=== PATIENT | female | born 1990 | race Hispanic/Latino ===

== ENCOUNTER 2017-07-29 20:12 | Emergency (ER) | payer SELFPAY ==
[2017-07-29 21:39] LABS: APPEARANCE,URINE Clear (CLEAR); BILIRUBIN,URINE Negative (NEGATIVE); COLOR,URINE Yellow (YELLOW); GLUCOSE, URINE (UA) Negative (NEGATIVE); KETONES,URINE 15 mg/dL (NEGATIVE); LEUKOCYTE ESTERASE ,URINE Trace (NEGATIVE); NITRATE,URINE Negative (NEGATIVE); OCCULT BLOOD,URINE Negative (NEGATIVE); PH,URINE 5.5 (5.0-8.0); PROTEIN,URINE Negative (NEGATIVE); UROBILINOGEN,URINE 0.2 mg/dL (0.2-1.0)
[2017-07-29 21:42] LABS: HCG,QUAL RESULT NEGATIVE (NEGATIVE)
[2017-07-29 22:09] LABS: BASOPHILS % (AUTO) 0.5 % (0.0-5.0); EOSINOPHILS % (AUTO) 0.4 % (0.0-8.0); HEMATOCRIT 40.6 % (36-48); LYMPHOCYTES % (AUTO) 12.8 % (21.0-51.0); MEAN CORPUSCULAR HEMOGLOBIN 29.8 pg (27.0-33.0); MEAN CORPUSCULAR HGB CONC 34.6 g/dL (32.0-36.0); MEAN CORPUSCULAR VOLUME 86.1 fL (79-99); MONOCYTES % (AUTO) 3.4 % (3.0-13.0); NEUTROPHILS % (AUTO) 82.9 % (40.0-77.0); PLATELET COUNT (AUTO) 291 K/uL (130-400); RED BLOOD CELL COUNT(AUTO) 4.71 MIL/uL (4.00-5.50); RED CELL DISTRIBUTION WIDTH 13.8 % (11.0-15.5); WHITE BLOOD COUNT (AUTO) 10.3 K/uL (4.8-10.8)
[2017-07-29 22:23] LABS: CREATININE 0.8 mg/dL (0.5-1.5); POTASSIUM 3.9 mmol/L (3.5-5.1)
[2017-07-29 22:23] LABS: RBC,URINE 0-1 /HPF (0-1)
[2017-07-29 22:24] LABS: BACTERIA,URINE Few /HPF (None Seen); SQUAMOUS EPITHELIAL CELL,UR Few /LPF (0-2)
[2017-07-29 22:28] LABS: ALBUMIN 3.6 g/dL (3.5-5.0); BILIRUBIN,TOTAL 0.3 mg/dL (0.2-1.0); TOTAL PROTEIN, SERUM 7.8 g/dL (6.0-8.3)
[2017-07-29] MEDS ORDERED: LIDOCAINE HCL 2% VISCOUS 15 ML UDCUP ONE (22:43)
[2017-07-29] MEDS ORDERED: MAG HYDROX/AL HYDROX/SIMETH ES 30 ML SUSP UDCUP ONE (22:43)
== END 2017-07-29 23:37 | disposition home or self-care (01) ==
LOC: EDH 20:12
DX: N30.00 Acute cystitis without hematuria (principal); R10.13 Epigastric pain; R10.12 Left upper quadrant pain; F41.9 Anxiety disorder, unspecified
CPT/HCPCS: 36415; 80053; 81001; 81025; 83690; 85025; 86677

== ENCOUNTER 2021-07-25 18:20 | Inpatient (IN) | payer OTHER ==
[~2021-07-25] VITALS: Ht 154.9 cm; Wt 79.8 kg
[2021-07-25 19:30] VITALS: BP 120/69
[2021-07-25] MEDS ORDERED: LACTATED RINGERS 1000ML 1,000 ML IV PRN (19:30)
[2021-07-25] MEDS ORDERED: LACTATED RINGERS 500 ML 500 ML IV PRN (19:30)
[2021-07-25] MEDS ORDERED: EPHEDRINE SULFATE 50 MG/ML AMPULE IVP PRN (19:30)
[2021-07-25] MEDS ORDERED: PROMETHAZINE HCL 25 MG/ML 1ML AMPULE IM PRN (19:30)
[2021-07-25] MEDS ORDERED: MEPERIDINE-PF 50 MG/ML SYG IVP PRN (19:30)
[2021-07-25] MEDS ORDERED: NALOXONE HCL 0.4 MG/1 ML ML IV PRN (19:30)
[2021-07-25] MEDS: OXYTOCIN-LR 20 UNITS/1000 ML 1,000 ML IV SCH (19:30)
[2021-07-25] MEDS ORDERED: ROPIVACAINE 0.2% 100ML VIAL 100 ML EP SCH (19:30)
[2021-07-25 19:47] LABS: MEAN CORPUSCULAR HEMOGLOBIN 32.1 pg (27.0-33.0); MEAN CORPUSCULAR VOLUME 91.6 fL (79-99); RED BLOOD CELL COUNT(AUTO) 3.93 MIL/uL (4.00-5.50); RED CELL DISTRIBUTION WIDTH 12.8 % (11.0-15.5)
[2021-07-25 19:51] LABS: APPEARANCE,URINE Clear (CLEAR); BILIRUBIN,URINE Negative (NEGATIVE); COLOR,URINE Yellow (YELLOW); GLUCOSE, URINE (UA) Negative (NEGATIVE); KETONES,URINE Negative (NEGATIVE); LEUKOCYTE ESTERASE ,URINE Trace (NEGATIVE); NITRATE,URINE Negative (NEGATIVE); OCCULT BLOOD,URINE Negative (NEGATIVE); PH,URINE 5.5 (5.0-8.0); PROTEIN,URINE Negative (NEGATIVE); UROBILINOGEN,URINE 0.2 mg/dL (0.2-1.0)
[2021-07-25] MEDS ORDERED: DINOPROSTONE 10 MG VAGINAL SUPP VG SCH (20:00)
[2021-07-25 20:09] LABS: RBC,URINE 0-1 /HPF (0-1)
[2021-07-25 20:10] LABS: BACTERIA,URINE Few /HPF (None Seen); TRANSITIONAL EPI CELLS,URINE Rare /HPF (None Seen)
[2021-07-25 20:11] LABS: MUCUS,URINE Rare LPF (None Seen); SQUAMOUS EPITHELIAL CELL,UR Moderate /HPF (0-2)
[2021-07-26] MEDS: OXYTOCIN-LR 20 UNITS/1000 ML 1,000 ML IV SCH (08:32)
[2021-07-26] MEDS: MISOPROSTOL 25 MCG TABLET VG PRN ×2 (20:08→23:36)
[2021-07-27] MEDS: MISOPROSTOL 25 MCG TABLET VG PRN (02:14)
[2021-07-27] MEDS: OXYTOCIN-LR 20 UNITS/1000 ML 1,000 ML IV SCH ×2 (06:07→15:18)
[2021-07-27] MEDS ORDERED: FENTANYL CITRATE PF 50 MCG/1 ML 2ML VIAL ONE (08:20)
[2021-07-27] MEDS ORDERED: LIDOCAINE HCL 1% 20 ML VIAL ONE (12:26)
[2021-07-27] MEDS ORDERED: METHYLERGONOVINE MALEATE 0.2 MG/1 ML ML ONE (12:27)
[2021-07-27] MEDS ORDERED: WITCH HAZEL 1 PAD TP PRN (15:30)
[2021-07-27] MEDS ORDERED: LANOLIN 30GM OINTMENT TP PRN (15:30)
[2021-07-27] MEDS ORDERED: ACETAMINOPHEN WITH CODEINE 1 TAB TAB PO PRN (15:30)
[2021-07-27] MEDS ORDERED: BENZOCAINE/LANOLIN/ALOE VERA 60 ML AEROSOL TP PRN (15:30)
[2021-07-27] MEDS ORDERED: MEASLES/MUMPS/RUBELLA VACCINE, LIVE 0.5 ML/VIAL SQ PRN (15:30)
[2021-07-27] MEDS ORDERED: ACETAMINOPHEN 325 MG TAB PO PRN (15:30)
[2021-07-27] MEDS ORDERED: DIPH,PERTUSS(ACELL),TET VAC/PF 0.5 ML VIAL IM PRN (15:30)
[2021-07-27] MEDS ORDERED: OXYTOCIN-LR 20 UNITS/1000 ML 1,000 ML IV SCH (15:30)
[2021-07-27 16:49] VITALS: BP 130/69
[2021-07-27 19:14] VITALS: BP 118/66
[2021-07-27] MEDS ORDERED: PNV1TABL17 PO (19:37)
[2021-07-27] MEDS ORDERED: LORA10TA7 PO (19:37)
[2021-07-27] MEDS ORDERED: SERT25TA PO (19:37)
[2021-07-27] MEDS: IBUPROFEN 600 MG TABLET PO PRN (20:06)
[2021-07-27] MEDS: DOCUSATE SODIUM 100 MG CAP PO SCH (21:10)
[2021-07-27 23:09] VITALS: BP 96/48
[2021-07-28 03:23] VITALS: BP 91/56
[2021-07-28] MEDS: IBUPROFEN 600 MG TABLET PO PRN ×2 (05:27→10:56)
[2021-07-28 06:58] LABS: HEMATOCRIT 33.6 % (36-48); MEAN CORPUSCULAR HGB CONC 33.9 g/dL (32.0-36.0); MEAN CORPUSCULAR VOLUME 94.4 fL (79-99); RED BLOOD CELL COUNT(AUTO) 3.56 MIL/uL (4.00-5.50); WHITE BLOOD COUNT (AUTO) 10.3 K/uL (4.8-10.8)
[2021-07-28 07:14] VITALS: BP 95/66
[2021-07-28] MEDS: DOCUSATE SODIUM 100 MG CAP PO SCH (09:12)
[2021-07-28] MEDS ORDERED: IBUP-2077 PO (10:30)
[2021-07-28] MEDS ORDERED: DOCU-116 PO (10:31)
[2021-07-28 11:21] VITALS: BP 96/48
== END 2021-07-28 15:45 | disposition home or self-care (01) | DRG 807 ==
LOC: EDH 18:20 → OBSVTOIN 18:21 → LDH 18:21 → WSH 07-27 17:30
PROVIDERS: ADMIT Obstetrics & Gynecology; ATTEND Obstetrics & Gynecology
PROC: 10E0XZZ Delivery of Products of Conception, External Approach (ICD-10-PCS; principal; 2021-07-27)
PROC: 0KQM0ZZ Repair Perineum Muscle, Open Approach (ICD-10-PCS; 2021-07-27)
PROC: 3E0P7GC Introduction of Other Therapeutic Substance into Female Reproductive, Via Natural or Artificial Opening (ICD-10-PCS; 2021-07-27)
PROC: 10907ZC Drainage of Amniotic Fluid, Therapeutic from Products of Conception, Via Natural or Artificial Opening (ICD-10-PCS; 2021-07-27)
PROC: 3E0R3BZ Introduction of Anesthetic Agent into Spinal Canal, Percutaneous Approach (ICD-10-PCS; 2021-07-27)
PROC: 00HU33Z Insertion of Infusion Device into Spinal Canal, Percutaneous Approach (ICD-10-PCS; 2021-07-27)
DX: O99.344 Other mental disorders complicating childbirth (principal); Z37.0 Single live birth; F41.9 Anxiety disorder, unspecified; F32.A Depression, unspecified; O70.1 Second degree perineal laceration during delivery; O80 Encounter for full-term uncomplicated delivery; Z3A.39 39 weeks gestation of pregnancy
CPT/HCPCS: 36415; 81001; 85027; 86592; 86850; 86900; 86901; 87340; A4314; A4351; G0378; J2210; J2590; J2795; J3010; J7120